=== PATIENT | female | born 1985 | race Caucasian/White ===

== ENCOUNTER 2016-07-13 16:15 | Emergency (ER) | payer OTHER ==
[2016-07-13 16:39] VITALS: RESP 18; TEMP 98.4; O2SAT 99
--- NOTE | 2016-07-13 17:31 | C.PDOC ---
History Of Present Illness The patient, a 31 y/o female, presents to the ED for evaluation of right eye redness and swelling caused by a possible allergic reaction around 4 hours GROUTMAN. Patient states she was eating cherries prior to the onset of her symptoms. She notes she may have accidentally touched her eye after eating the fruit, which may have caused her current symptoms. She reports taking one tablet of Benadryl around 2 hours GROUTMAN. Patient denies shortness of breath, throat swelling, mouth swelling, itching, or drainage. Time Seen by Provider: 07/13/16 16:49 Chief Complaint (Nursing): Allergic Reaction History Per: Patient History/Exam Limitations: no limitations Onset/Duration Of Symptoms: Hrs Current Symptoms Are (Timing): Still Present Possible Cause: Food Associated Symptoms: Swelling. denies: Dyspnea, Trouble Swallowing, Itching Home/EMS Treatment: Benadryl Additional History Per: Patient Past Medical History Reviewed: Historical Data, Nursing Documentation, Vital Signs Vital Signs: Last Vital Signs Temp 98.4 F 07/13/16 16:36 Pulse 75 07/13/16 17:44 Resp 18 07/13/16 17:44 BP 106/72 07/13/16 17:44 Pulse Ox 99 07/13/16 20:24 - Medical History PMH: No Chronic Diseases Surgical History: No Surg Hx - [facility] Procedures PHYSICAL THERAPY NEC (09/25/13) Family History: States: Unknown Family Hx - Social History Hx Alcohol Use: Yes Hx Substance Use: No - Immunization History Hx Tetanus Toxoid Vaccination: No Hx Influenza Vaccination: No Hx Pneumococcal Vaccination: No Review Of Systems Except As Marked, All Systems Reviewed And Found Negative. Eyes: Positive for: Redness (right), Other (+right eye swelling. no itching or discharge ) ENT: Negative for: Mouth Swelling, Throat Swelling Physical Exam - Physical Exam Appears: Non-toxic, No Acute Distress Skin: Normal Color, Warm, Dry Head: Atraumatic, Normacephalic Eye(s): bilateral: PERRL, EOMI, right: Other (+mild periorbital swelling ), left : Normal Inspection Ear(s): Bilateral: Normal Nose: Normal Oral Mucosa: Moist Lips: Normal Appearing Neck: Supple Chest: Symmetrical, No Deformity, No Tenderness Cardiovascular: Rhythm Regular, No Murmur Respiratory: Normal Breath Sounds, No Rales, No Rhonchi, No Wheezing Extremity: Normal ROM, Capillary Refill (less than 2 seconds ) Neurological/Psych: Oriented x3, Normal Speech, Normal Cognition Gait: Steady ED Course And Treatment O2 Sat by Pulse Oximetry: 99 (on RA) Pulse Ox Interpretation: Normal Medical Decision Making Medical Decision Making: Plan: * Pepcid PO * Prednisone PO * reassess and disposition Progress Notes: Patient received Pepcid PO and Prednisone PO. 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 - Scribe Statement The provider has reviewed the documentation as recorded by the Scribe (Cortney Buck) All medical record entries made by the Scribe were at my direction and personally dictated by me. I have reviewed the chart and agree that the record accurately reflects my personal performance of the history, physical exam, medical decision making, and the department course for this patient. I have also personally directed, reviewed, and agree with the discharge instructions and disposition.
[2016-07-13 17:45] VITALS: BP 106/72; PULSE 75
== END 2016-07-13 17:44 | disposition home or self-care (01) ==
LOC: C.ER 16:15
DX: L50.0 Allergic urticaria (principal)

== ENCOUNTER 2016-09-05 18:14 | Emergency (ER) | payer OTHER ==
[2016-09-05 18:38] VITALS: BMI 29.2
[2016-09-05 18:42] VITALS: BP 135/84; PULSE 61; RESP 18; TEMP 98.6; O2SAT 100
--- NOTE | 2016-09-05 20:21 | C.PDOC ---
History Of Present Illness 31 yo female c/o left sided facial swelling since yesterday. Pt notes that yesterday she got a bug bite to the left scalp, later her face began to swell. No known allergens. No difficulty breathing or swallowing. No dental pain or swelling. Notes swelling has improved yesterday. H/o similar episodes- notes " it doesnt get better without steroids". Time Seen by Provider: 09/05/16 19:26 Chief Complaint (Nursing): Abnormal Skin Integrity History Per: Patient History/Exam Limitations: no limitations Quality Of Symptoms: Painful, Swollen Past Medical History Vital Signs: Last Vital Signs Temp 98.6 F 09/05/16 18:38 Pulse 61 09/05/16 18:38 Resp 18 09/05/16 18:38 BP 135/84 09/05/16 18:38 Pulse Ox 100 09/05/16 20:21 - [facility] Procedures PHYSICAL THERAPY NEC (09/25/13) Family History: States: Unknown Family Hx - Social History Hx Alcohol Use: No Hx Substance Use: No - Immunization History Hx Tetanus Toxoid Vaccination: No Hx Influenza Vaccination: No Hx Pneumococcal Vaccination: No Review Of Systems Except As Marked, All Systems Reviewed And Found Negative. Eyes: Positive for: Eyelid Inflammation. Negative for: Vision Change ENT: Positive for: Ear Pain Cardiovascular: Negative for: Chest Pain Respiratory: Negative for: Cough, Shortness of Breath Physical Exam - Physical Exam Appears: Well, Non-toxic, No Acute Distress Skin: Normal Color, Warm, Dry Head: Atraumatic, Normacephalic Eye(s): bilateral: PERRL, EOMI, Eyelid Inflammation (Left, very mild) Ear(s): Bilateral: Normal, Other ((-) mastoid tenderness) Nose: Normal Oral Mucosa: Moist Teeth: No Tender To Palpation Gingiva: No Swelling Throat: Normal, No Erythema Neck: Normal, Normal ROM, Supple Chest: Symmetrical Cardiovascular: Rhythm Regular Respiratory: Normal Breath Sounds Gastrointestinal/Abdominal: Normal Exam Back: Normal Inspection Extremity: Normal ROM Neurological/Psych: Oriented x3, Normal Speech, Normal Cognition, Normal Cranial Nerves, Normal Sensation Gait: Steady ED Course And Treatment O2 Sat by Pulse Oximetry: 100 Progress Note: Pt treated with benadryl and prednisone. On re-evaluation, patient is resting comfortably, tolerating PO, has no shortness of breath, has no intra-oral swelling, no stridor. No signs of infection- no erythema, fever. Patient was advised to avoid potential allergens, and to follow up with physician in 1-2 days. Disposition - Disposition Disposition: HOME/ ROUTINE Disposition Time: 20:17 Condition: STABLE Additional Instructions: Follow up with primary medical doctor in 1-3 days without fail for further evaluation. Take medications as prescribed. Return to the emergency department at any time if symptoms persist or worsen. Prescriptions: DiphenhydrAMINE [Benadryl] 25 mg PO Q6 #20 cap predniSONE [Prednisone] 40 mg PO DAILY #8 tab Instructions: General Allergic Reaction (ED) - Clinical Impression Clinical Impression: Bug bite, Allergic reaction
== END 2016-09-05 20:35 | disposition home or self-care (01) ==
LOC: C.ER 18:14
DX: T78.49XA Other allergy, initial encounter (principal); W57.XXXA Bitten or stung by nonvenomous insect and other nonvenomous arthropods, initial encounter

== ENCOUNTER 2017-03-14 19:05 | Emergency (ER) | payer OTHER ==
[2017-03-14 19:05] VITALS: BMI 29.2
[2017-03-14 19:20] VITALS: RESP 20
--- NOTE | 2017-03-14 20:14 | C.PDOC ---
History Of Present Illness Patient states that today after having her breakfast, she took a fish oil pill which she now feels is stuck in her throat. Patient states she has been able to eat and drink, and ate her lunch today as well however the sensation still persists. She is able to speak in full sentences. She has no other complaints. Time Seen by Provider: 03/14/17 20:08 Chief Complaint (Nursing): Chest Pain History Per: Patient History/Exam Limitations: no limitations Onset/Duration Of Symptoms: Hrs Current Symptoms Are (Timing): Still Present Past Medical History Reviewed: Historical Data, Nursing Documentation, Vital Signs Vital Signs: Last Vital Signs Temp 98.4 F 03/14/17 19:15 Pulse 66 03/14/17 19:15 Resp 20 03/14/17 19:15 BP 155/100 H 03/14/17 19:15 Pulse Ox 97 03/14/17 20:45 - Medical History PMH: No Chronic Diseases Surgical History: No Surg Hx - [facility] Procedures PHYSICAL THERAPY NEC (09/25/13) Family History: States: Unknown Family Hx - Social History Hx Alcohol Use: No Hx Substance Use: No - Immunization History Hx Tetanus Toxoid Vaccination: No Hx Influenza Vaccination: No Hx Pneumococcal Vaccination: No Review Of Systems Except As Marked, All Systems Reviewed And Found Negative. ENT: Positive for: Other (feels as if fish oil pill is stuck in her throat) Physical Exam - Physical Exam Appears: Non-toxic, No Acute Distress Skin: Warm, Dry Head: Atraumatic, Normacephalic Eye(s): bilateral: PERRL, EOMI Oral Mucosa: Moist Throat: No Erythema, No Exudate, No Drooling Neck: Normal ROM, Supple Chest: Symmetrical Cardiovascular: Rhythm Regular Respiratory: No Rales, No Rhonchi, No Wheezing Gastrointestinal/Abdominal: Soft, No Tenderness Neurological/Psych: Oriented x3, Normal Speech, Normal Cognition ED Course And Treatment ECG: Interpreted By Me, Viewed By Me ECG Rhythm: Sinus Rhythm (69), Nonspecific Changes O2 Sat by Pulse Oximetry: 97 (RA) Pulse Ox Interpretation: Normal Reevaluation Time: 22:11 Reassessment Condition: Improved Disposition Counseled Patient/Family Regarding: Studies Performed, Diagnosis, Need For Followup - Disposition Referrals: [facility] [Outside] [facility] [Outside] Disposition: HOME/ ROUTINE Disposition Time: 22:12 Condition: FAIR Instructions: Foreign Body Ingestion (ED) Forms: [employer] (Wolof) - Clinical Impression Clinical Impression: Throat pain in adult - Scribe Statement The provider has reviewed the documentation as recorded by the Scribe (Gabriella Hartmann) Provider Attestation: All medical record entries made by the Dianeibe were at my direction and personally dictated by me. I have reviewed the chart and agree that the record accurately reflects my personal performance of the history, physical exam, medical decision making, and the department course for this patient. I have also personally directed, reviewed, and agree with the discharge instructions and disposition.
[2017-03-14 22:29] VITALS: BP 154/100; PULSE 76; TEMP 98.7; O2SAT 98
--- NOTE | 2017-03-15 08:45 | CT ---
PROCEDURE: CT NECK WITHOUT CONTRAST HISTORY: possible foreign object COMPARISON: None. TECHNIQUE: CT of the neck without intravenous contrast. Coronal and sagittal reformats generated. Radiation dose: DLP 403.04 mGy-cm This CT exam was performed using one or more of the following dose reduction techniques: Automated exposure control, adjustment of the mA and/or kV according to patient size, and/or use of iterative reconstruction technique. FINDINGS: NASOPHARYNX: Unremarkable. SUPRAHYOID NECK: Unremarkable oropharynx, oral cavity, parapharyngeal space and retropharyngeal space. INFRAHYOID NECK: Unremarkable larynx, hypopharynx, and supraglottic space. Vocal cords intact. MASS: None. GLANDS: Parotid and submandibular glands unremarkable. Normal size thyroid gland, without nodule. LYMPH NODES: Normal. No lymphadenopathy. CERVICAL SPINE: No fracture or focal lesion. OTHER FINDINGS: No radiopaque foreign body identified. IMPRESSION: Unremarkable non-contrast enhanced CT of the neck. No evidence of radiopaque foreign body. Preliminary interpretation of this examination was reported by [facility] at 9:56 p.m. on 03/14/2017. There is concurrence of this report with the preliminary interpretation.
--- NOTE | 2017-03-17 03:51 | CARD ---
APPROVED REPORT EKG Measurement Heart [id number] <Conclusion> Normal sinus rhythm Minimal voltage criteria for LVH, may be normal variant Borderline ECG
== END 2017-03-14 22:26 | disposition home or self-care (01) ==
LOC: C.ER 19:05
DX: R07.0 Pain in throat (principal)

== ENCOUNTER 2017-05-07 11:09 | Emergency (ER) | payer OTHER ==
[2017-05-07 11:10] VITALS: BMI 29.2
[2017-05-07 11:16] VITALS: BP 162/101; PULSE 69; RESP 16; TEMP 98.1; O2SAT 100
--- NOTE | 2017-05-07 11:46 | C.PDOC ---
History Of Present Illness 31 year old female presents to the ED with complaints of a sore throat associated with body aches and subjective fever for the past 2 weeks. Patient reports she has taken over the counter medication without feeling relief. Denies cough, nausea, vomiting, diarrhea, rash, shortness of breath and has not recently traveled. Time Seen by Provider: 05/07/17 11:27 Chief Complaint (Nursing): ENT Problem History Per: Patient History/Exam Limitations: no limitations Onset/Duration Of Symptoms: Days (x 14), Persistent Current Symptoms Are (Timing): Still Present Location Of Pain: Throat, Diffuse Myalgias Associated Symptoms: Fever (subjective), Sore Throat, Myalgias Ear Symptoms: Bilateral: None Recent travel outside of the [place]: No Past Medical History Reviewed: Historical Data, Nursing Documentation, Vital Signs Vital Signs: Last Vital Signs Temp 98.1 F 05/07/17 11:14 Pulse 69 05/07/17 11:14 Resp 16 05/07/17 11:14 BP 162/101 H 05/07/17 11:14 Pulse Ox 100 05/07/17 12:19 - [facility] Procedures PHYSICAL THERAPY NEC (09/25/13) Family History: States: Unknown Family Hx - Social History Hx Alcohol Use: No Hx Substance Use: No - Immunization History Hx Tetanus Toxoid Vaccination: No Hx Influenza Vaccination: No Hx Pneumococcal Vaccination: No Review Of Systems Except As Marked, All Systems Reviewed And Found Negative. Constitutional: Positive for: Fever (Subjective) ENT: Positive for: Throat Pain Respiratory: Negative for: Cough, Shortness of Breath Gastrointestinal: Negative for: Nausea, Vomiting, Diarrhea Musculoskeletal: Positive for: Other (Body aches) Physical Exam - Physical Exam Appears: Non-toxic Skin: Normal Color, Warm, Dry Head: Atraumatic, Normacephalic Eye(s): bilateral: Normal Inspection Ear(s): Bilateral: Normal Oral Mucosa: Moist Throat: Erythema (tonsillar ), Other (tonsillar swelling, uvula normal) Neck: Normal, Supple Lymphatic: Adenopathy (Cervical anterior) Chest: Symmetrical, No Tenderness Cardiovascular: Rhythm Regular Respiratory: Normal Breath Sounds, No Rales, No Rhonchi, No Wheezing Gastrointestinal/Abdominal: Soft Neurological/Psych: Oriented x3, Normal Speech ED Course And Treatment O2 Sat by Pulse Oximetry: 100 (RA) Pulse Ox Interpretation: Normal Medical Decision Making Medical Decision Making: Amoxil, ibuprofen, throat culture, and rapid strep ordered. Old records reviewed, the patient was last seen in this ED on 03/14/17 for foreign body sensation, had CT of the soft tissue neck which was negative and the patient was discharged home. Based on physical exam and centor criteria, will treat patient for possible strep throat; throat cultures sent and patient discharged on antibiotics. Disposition - Disposition Referrals: [facility] [Outside] Marco Nicolas MD [Staff Provider] - Disposition: HOME/ ROUTINE Disposition Time: 11:58 Condition: STABLE Additional Instructions: Follow up with the medical doctor within 1-2 days without fail, Return if worsened. Prescriptions: Amoxicillin [Amoxil 500 mg Cap] 500 mg PO TID #29 cap Ibuprofen [Motrin] 600 mg PO TID #21 tab predniSONE [Prednisone] 20 mg PO BID #10 tab Instructions: Strep Throat (DC) Forms: [employer] (Turkish) - Clinical Impression Clinical Impression: Pharyngitis - Scribe Statement The provider has reviewed the documentation as recorded by the Dianeibjuan Shah All medical record entries made by the Dianeibjuan were at my direction and personally dictated by me. I have reviewed the chart and agree that the record accurately reflects my personal performance of the history, physical exam, medical decision making, and the department course for this patient. I have also personally directed, reviewed, and agree with the discharge instructions and disposition.
== END 2017-05-07 12:07 | disposition home or self-care (01) ==
LOC: C.ER 11:09
DX: J02.9 Acute pharyngitis, unspecified (principal)

== ENCOUNTER 2018-03-19 17:35 | Emergency (ER) | payer MEDICAID, OTHER ==
[2018-03-19 17:35] VITALS: BMI 29.2
[2018-03-19] MEDS ORDERED: Sodium Chloride 0.9% 1,000 ML ONE (19:00)
[2018-03-19] MEDS ORDERED: Sodium Chloride 0.9% 1,000 ML IV ONE (19:22)
--- NOTE | 2018-03-19 19:22 | C.PDOC ---
History Of Present Illness Patient presents to the ER with a complaint of severe headache that began earlier today. Patient has a Hx of migraines but states this feels worse than her usual. She reports some nausea and photo sensitivity. Patient took medication at home with no relief. Denies vomiting, fever, or chills. Time Seen by Provider: 03/19/18 19:21 Chief Complaint (Nursing): Headache History Per: Patient History/Exam Limitations: no limitations Onset/Duration Of Symptoms: Hrs Current Symptoms Are (Timing): Still Present Severity: Moderate Pain Scale Rating Of: 6 Preceeding Symptoms: Known Migraine Symptoms Associated Symptoms: Photophobia, Nausea Recent travel outside of the [place]: No Past Medical History Reviewed: Historical Data, Nursing Documentation, Vital Signs Vital Signs: Last Vital Signs Temp 97.7 F 03/19/18 18:00 Pulse 66 03/19/18 18:24 Resp 18 03/19/18 18:24 BP 175/96 H 03/19/18 18:24 Pulse Ox 98 03/19/18 18:24 - Medical History PMH: HTN, Migraine - [facility] Procedures PHYSICAL THERAPY NEC (09/25/13) Family History: States: No Known Family Hx - Social History Hx Alcohol Use: No Hx Substance Use: No - Immunization History Hx Tetanus Toxoid Vaccination: No Hx Influenza Vaccination: No Hx Pneumococcal Vaccination: No Review Of Systems Constitutional: Negative for: Fever, Chills Eyes: Positive for: Other (Photo sensitivity) Cardiovascular: Negative for: Chest Pain, Palpitations Respiratory: Negative for: Cough, Shortness of Breath Gastrointestinal: Negative for: Nausea, Vomiting Neurological: Positive for: Headache. Negative for: Weakness, Numbness Physical Exam - Physical Exam Appears: Non-toxic Skin: Warm, Dry Head: Normacephalic Eye(s): bilateral: Normal Inspection, PERRL, EOMI Oral Mucosa: Moist Neck: Trachea Midline, No Midline Cervical Tenderness, No Paracervical Tenderness, Supple Chest: Symmetrical, No Tenderness Cardiovascular: Rhythm Regular Respiratory: No Rales, No Rhonchi, No Wheezing Gastrointestinal/Abdominal: Soft, No Tenderness Extremity: Other (Moves all extremities) Neurological/Psych: Oriented x3, Other (No focal deficit) Gait: Steady ED Course And Treatment - Laboratory Results Result Diagrams: 03/19/18 19:46 03/19/18 19:46 O2 Sat by Pulse Oximetry: 98 (Room air) Pulse Ox Interpretation: Normal Progress Note: Blood work and urinalysis ordered. Zofran, IV fluids, and mag sulfate administered. Reevaluation Time: 21:43 Reassessment Condition: Improved Disposition Counseled Patient/Family Regarding: Studies Performed, Diagnosis - Disposition Referrals: Aziza Zapata MD [Medical Doctor] - Shant Hunter MD [Staff Provider] - Disposition: HOME/ ROUTINE Disposition Time: 19:21 Condition: FAIR Additional Instructions: Please return if symptoms recur Prescriptions: Ondansetron ODT [Zofran ODT] 1 odt PO BID PRN #6 odt PRN Reason: Nausea/Vomiting Instructions: Migraine Headache (DC) Forms: [employer] (Kinyarwanda) - Clinical Impression Clinical Impression: Migraine - Scribe Statement The provider has reviewed the documentation as recorded by the Scribjuan Boyd All medical record entries made by the Scribe were at my direction and personally dictated by me. I have reviewed the chart and agree that the record accurately reflects my personal performance of the history, physical exam, medical decision making, and the department course for this patient. I have also personally directed, reviewed, and agree with the discharge instructions and disposition.
[2018-03-19] MEDS ORDERED: Magnesium Sulfate 1 gm in D5W 1 GM/100 ML BAG IVPB ONE (19:27)
[2018-03-19 19:57] LABS: BASO # 0.1 K/uL (0.0-0.2); BASO % 0.8 % (0.0-2.0); EOS # 0.1 K/uL (0.0-0.7); EOS % 1.1 % (0.0-4.0); HEMOGLOBIN 13.3 g/dL (11.0-16.0); LYMPH # 2.8 K/uL (1.0-4.3); LYMPH % 39.3 % (20.0-40.0); MEAN CELL VOLUME 89.5 fL (81.0-99.0); MEAN CORPUSCULAR HGB CONC 33.5 g/dL (33.0-37.0); MEAN PLATELET VOLUME 8.2 fL (7.2-11.7); MONO # 0.5 K/uL (0.0-0.8); MONO % 6.9 % (0.0-10.0); NEUT # 3.6 K/uL (1.8-7.0); NEUT % 51.9 % (50.0-75.0); NRBC % 0.1 % (0.0-2.0); RBC 4.43 Mil/uL (3.80-5.20); RED CELL DISTRIBUTION WIDTH 12.9 % (11.5-14.5)
[2018-03-19] MEDS ORDERED: Magnesium Sulfate 1 gm in D5W 2 GM/200 ML BAG IVPB ONE (20:03)
[2018-03-19 20:11] LABS: BLOOD UREA NITROGEN 7 mg/dL (7-17); CALCIUM 9.6 mg/dl (8.6-10.4); GFR NON-AFRICAN AMERICAN > 60
[2018-03-19 21:57] VITALS: BP 145/80; PULSE 65; RESP 17; TEMP 98.1; O2SAT 99
--- NOTE | 2018-03-20 08:12 | CT ---
Date of service: 03/19/2018 PROCEDURE: CT HEAD WITHOUT CONTRAST. HISTORY: severe headache, nausea and vomiting, photophobia COMPARISON: None available. TECHNIQUE: Axial computed tomography images were obtained through the head/brain without intravenous contrast. Radiation dose: Total exam DLP = 1030.3 mGy-cm. This CT exam was performed using one or more of the following dose reduction techniques: Automated exposure control, adjustment of the mA and/or kV according to patient size, and/or use of iterative reconstruction technique. FINDINGS: HEMORRHAGE: No intracranial hemorrhage. BRAIN: No mass effect or edema. No atrophy or chronic microvascular ischemic changes. VENTRICLES: Unremarkable. No hydrocephalus. CALVARIUM: Unremarkable. PARANASAL SINUSES: Unremarkable as visualized. No significant inflammatory changes. MASTOID AIR CELLS: Unremarkable as visualized. No inflammatory changes. OTHER FINDINGS: None. IMPRESSION: No acute intracranial abnormality. If symptoms persists, consider correlation with MRI. A preliminary report was generated at 9:05 p.m. on 03/19/[address] Xavier Pettit from [facility].
== END 2018-03-19 21:56 | disposition home or self-care (01) ==
LOC: C.ER 17:35
DX: G43.909 Migraine, unspecified, not intractable, without status migrainosus (principal)
CPT/HCPCS: 70450; 80048; 81025; 84703; 85025; 96374; 96375; 99285; J1885; J2405; J2765; J3475; J7030